=== PATIENT | female | born 1995 | race Two or more races ===

== ENCOUNTER → 2024-01-28 | Outpatient (CLI) | payer MEDICAID, SELFPAY ==
--- NOTE | 2024-01-28 15:39 | XR_ITS ---
Examination: Breast ultrasound, unilateral, left complete Date and time of exam: January 28, 2024 1546 hours INDICATIONS: Palpable lump left breast 10:00 position tender to touch noticed beginning 3 weeks ago Technique: Real-time griffin scale ultrasonographic imaging performed left breast including all 4 quadrants as well as nipple retroareolar and axillary region. Findings: No cystic or solid mass noted IMPRESSION: BI-RADS Category 1: Negative study Recommend repeating this study in 3 months as clinically warranted
== END | disposition home or self-care (01) ==
PROVIDERS: PCP Internal Medicine; Referring Provider Family Medicine; Visit Provider Family Medicine
DX: N63.0 Unspecified lump in unspecified breast (principal)
CPT/HCPCS: 76641

== ENCOUNTER → 2024-07-06 | Outpatient (CLI) | payer MEDICAID, SELFPAY ==
--- NOTE | 2024-07-06 14:00 | XR_ITS ---
Examination: Breast ultrasound complete, bilateral Date and time of exam: July 06, 2024 1437 hours INDICATIONS: Left breast pain 6 months Technique: Real-time grayscale ultrasonographic imaging bilateral breasts, including all 4 quadrants as well as nipple retroareolar and axillary regions. Findings: Sonographic images right breast 12:00 nodule which may represent glandular tissue 9 x 8 mm 10:00 nodule which may represent glandular tissue 9 x 6 mm Sonographic images left breast 12:00 nodule indistinct margins 7 x 9 mm 2:00 nodule lobular margins 6 x 5 mm 2:00 nodule indistinct margins 14 x 11 mm IMPRESSION: BI-RADS Category 4: Suspicious for malignancy Suspicious nodules 12:00 and 2:00 position left breast, biopsy of both nodules is needed to exclude breast carcinoma Also 6 month bilateral breast sonography follow-up strongly recommended
--- NOTE | 2024-07-06 15:00 | XR_ITS ---
Examination: Diagnostic digital mammography, bilateral Computer aided detection 3-D breast Tomosynthesis, bilateral Date and time of exam: July 06, 2024 at 1516 hours INDICATIONS: Lump in the left breast note is beginning 6 months ago Technique: Nonmagnified MLO, CC views of the breasts to been obtained, reconstructed from 3-D Tomosynthesis images. R2 computer aided detection program utilized for evaluation of suspicious masses and/or abnormal calcifications. 3-D Tomosynthesis images obtained. Findings: The breasts are extremely dense, which limits the sensitivity of mammography Please see the breast sonogram report today indicating 2 suspicious nodules in the left breast 12:00 and 2:00 position Benign calcifications Impression: BI-RADS Category 4: Suspicious for malignancy Please see the left breast sonogram report today indicating 2 BI-RADS 4 suspicious nodules in the left breast 12:00 and 2:00 position requiring biopsy, under ultrasound guidance.
== END | disposition home or self-care (01) ==
LOC: CDIM 14:19
PROVIDERS: Referring Provider Nurse Practitioner Family; Visit Provider Nurse Practitioner Family
DX: R92.343 Mammographic extreme density, bilateral breasts (principal); N63.25 Unspecified lump in the left breast, overlapping quadrants; N63.21 Unspecified lump in the left breast, upper outer quadrant
CPT/HCPCS: 76641; 77062; 77066; G0279

== ENCOUNTER → 2024-09-16 | Outpatient (CLI) | payer MEDICAID, SELFPAY ==
--- NOTE | 2024-09-16 09:30 | XR_ITS ---
Examination: Breast ultrasound limited, left Date and time of exam: September 16, 2024 1132 hours INDICATIONS: Breast sonogram July 06, 2024 suspicious nodule 12:00 2:00 position left breast Technique: Real time griffin scale ultrasonographic imaging of the breast , retroarelar and axillary region. Findings: Current sonographic images do not confirm suspicious nodules in the 12:00 or 2:00 position left breast IMPRESSION: BI-RADS Category 3: Probably benign findings Six-month left breast sonogram follow-up is needed
[2024-09-16 10:38] LABS: Basophils # (Auto) 0.0 Thou/mm3 (0.0-0.2); Basophils % (Auto) 0 % (0-2.5); Eosinophils # (Auto) 0.0 Thou/mm3 (0.0-0.5); Eosinophils % (Auto) 0 % (0-10); Hematocrit 41.4 % (36.0-46.0); Hemoglobin 14.7 g/dL (12.0-16.0); Immature Granulocytes Auto 0.04 Thou/mm3 (0.00-0.00); Lymphocytes # (Auto) 2.7 Thou/mm3 (1.0-4.8); Lymphocytes % (Auto) 39 % (10-50); Mean Corpuscular HGB Conc 35.5 g/dl (31.0-37.0); Mean Corpuscular Hemoglobin 30.1 pg (25.0-35.0); Mean Corpuscular Volume 85 fL (80-100); Monocytes # (Auto) 0.5 Thou/mm3 (0.0-0.8); Monocytes % (Auto) 8 % (0-12); Neutrophils # (Auto) 3.5 Thou/mm3 (1.8-7.7); Neutrophils % (Auto) 52 % (37-80); Nucleated Red Blood Cell # 0.00 Thou/mm3 (0.00-0.00); Nucleated Red Blood Cell % 0 /100 WBC (0); Platelet Count 221 Thou/mm3 (140-440); RDW Standard Deviation 39.8 fL (36.4-46.3); Red Blood Count 4.88 Miln/mm3 (4.00-5.20); White Blood Count 6.8 Thou/mm3 (3.6-11.0)
[2024-09-16 10:54] LABS: INR 1.0 (0.9-1.3); Partial Thromboplastin Time 28.1 Seconds (22.0-36.0); Prothrombin Time 10.9 Seconds (9.0-12.2)
[2024-09-16 10:55] LABS: HCG,Qualitative Serum Negative
== END | disposition home or self-care (01) ==
LOC: SDIM 09:44
PROVIDERS: Radiology Diagnostic Radiology; PCP Family Medicine; Referring Provider Family Medicine; Visit Provider Family Medicine
DX: N63.0 Unspecified lump in unspecified breast (principal); R92.8 Other abnormal and inconclusive findings on diagnostic imaging of breast; Z53.8 Procedure and treatment not carried out for other reasons; Z01.812 Encounter for preprocedural laboratory examination
CPT/HCPCS: 36415; 76642; 84703; 85025; 85610; 85730